=== PATIENT | female | born 1980 | race Caucasian/White ===

== ENCOUNTER 2016-11-08 21:12 | Emergency (ER) | payer SELFPAY ==
--- NOTE | 2016-11-09 04:18 | ED ORDER SUMMARY ---
..... Patient: ZECHARIAH KATZ OrderSheet [facility] VisitID: [id number] [address] [place] [address] 36y, F Registration Date/Time: 11/08/2016 ORDER SHEET Weight: 99.7 kg (stated) Allergies: No Known Drug Allergy GENERAL ORDERS: CBC w Diff Urgent (22:06 11/08/2016 HSoule per protocol) (Ack 22:10 NHouse ER Tech1) (23:16 AMcQuoid ER Tech1) UA-Culture if indicated Urgent (22:06 11/08/2016 HSoule per protocol) (Ack 22:10 NHouse ER Tech1) (23:16 AMcQuoid ER Tech1) Urine Urgent (22:11/08/2016 HSoule per protocol) (Ack 22:10 NHouse ER Tech1) (23:16 AMcQuoid ER Tech1) Salicylate Level Urgent (22:11/08/2016 HSoule per protocol) (Ack 22:10 NHouse ER Tech1) (23:16 AMcQuoid ER Tech1) Ethyl Alcohol Urgent (22:06 11/08/2016 HSoule per protocol) (Ack 22:10 NHouse ER Tech1) (23:16 AMcQuoid ER Tech1) Acetaminophen Level Urgent (22:11/08/2016 HSoule per protocol) (Ack 22:10 NHouse ER Tech1) (23:16 AMcQuoid ER Tech1) Urine Drug Screen Urgent (22:11/08/2016 HSoule per protocol) (Ack 22:10 NHouse ER Tech1) (23:16 AMcQuoid ER Tech1) TSH Urgent (22:06 11/08/2016 HSoule per protocol) (Ack 22:10 NHouse ER Tech1) (23:16 AMcQuoid ER Tech1) CMP Urgent (22:11/08/2016 HSoule per protocol) (Ack 22:10 NHouse ER Tech1) (23:16 AMcQuoid ER Tech1) MEDICATION ORDERS: Zofran ODT PO 4 mg (NOW) (01:28 11/09/2016 HSoule verbal order read back to Dwayne RIVAS) (Ack 1:30 HSoule) (1:30 HSoule) IV FLUIDS: ORDER SHEET NOTES: [Electronically signed by Spring Silver (05:16 11/09/2016)] [Electronically signed by Steven Saez DO (16:30 11/09/2016)] [Electronically locked/signed by Spring Silver (05:16 11/09/2016)]
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
--- NOTE | 2016-11-09 04:18 | ED CLINICAL REPORT ---
Clinical Report - Physicians/Mid Levels [facility] [address] [place] [address] 11/08/2016 21:13 Patient: ZECHARIAH KATZ Time Seen: 2130; upon arrival, initial patient contact, initial documentation, patient care assumed. Arrived- By private vehicle. Not in custody. Historian- patient. HISTORY OF PRESENT ILLNESS Chief Complaint: ANXIOUS, DEPRESSED and SUICIDAL THOUGHTS and AGITATED. This started just prior to arrival. The patient has experienced situational problems related to personal finances, unemployment, a recent job loss and monetary problems (lost her job in Oct, and lost her health insurance shortly after, dad was dx with bad health issues). She was not found wandering. She is non-compliant with medication. Recent marijuana use. No recent alcohol consumption. Has been depressed but eating and had suicidal thoughts. Has not been sleeping. She has had anxiety. She inflicted self-injury to the left wrist. The symptoms are described as moderate. An injury is present. cut self with razor, has done this before, same wrist. Similar symptoms previously: Seen in the ED and a clinic. Hospitalized. Evaluation/treatment: antidepressants and has seen psychiatrist. Diagnosis: bipolar disorder, depression, self injury and suicide attempt. ( has had psych issues for over 20 years). Recent medical care: Not recently seen/assessed. REVIEW OF SYSTEMS No dizziness, weakness, chest pain, abdominal pain or vomiting. No diarrhea, numbness, fever, cough or difficulty breathing. All systems otherwise negative, except as recorded above. PAST HISTORY See nurses notes. ( PROBLEMS: Bipolar Disorder. Pseudoseizure. Anxiety Reaction. Depression. Seizure / pseudoseizure Disorder. Cyclical vomiting syndrome. SURGERIES: Hysterectomy.). Medications: ClonazePAM Oral. Allergies: No Known Drug Allergy. SOCIAL HISTORY Light tobacco smoker. Occasional alcohol use. History of occasional drug use: marijuana. Has social support. Has place to stay. FAMILY HISTORY Negative. ADDITIONAL NOTES The nursing notes have been reviewed with agreement regarding the chief complaint, HPI, ROS, PMH and patient medications and allergies. PHYSICAL EXAM Vital Signs: 11/08/2016 21:31 BP: 109/75. HR: 83. RR: 20. O2 saturation: 100%. Have been reviewed as normal and appear to be correct. Appearance: Alert. No acute distress. Appearance is normal. Eyes: Pupils equal, round and reactive to light. Neck: Normal inspection. Neck supple. CVS: Normal heart rate and rhythm. Heart sounds normal. Respiratory: Breath sounds normal. Chest nontender. Abdomen: Soft and nontender. Back: No tenderness. Skin: Skin warm and dry. Normal skin color. Normal skin turgor. Extremities: Extremities exhibit normal ROM. No lower extremity edema. (3cm lac to L wrist, no active bleeding, see lac note). Psych / Neuro: Oriented X 3. Mood and affect normal. Speech normal. Cognition normal. Thought process and content normal. Insight and judgement normal. Cranial nerves normal (as tested). No cerebellar findings. No motor deficit. No sensory deficit. LABS, X-RAYS, AND EKG Laboratory Tests: UA-Culture if indicated: (RUBEN: 11/08/2016 22:25) ( [facility] 11/08/2016 22:54) Final results Test Result Flag Units (Reference) URINE COLOR YELLOW URINE APPEARANCE CLEAR URINE GLUCOSE NEGATIVE (NEGATIVE) URINE BILIRUBIN NEGATIVE (NEGATIVE) URINE KETONE NEGATIVE (NEGATIVE) URINE SPECIFIC GRAVITY 1.025 (1.010-1.030) URINE PH 5.5 (5.0-8.0) URINE PROTEIN NEGATIVE (NEGATIVE) URINE UROBILINOGEN 0.2 EU/dL (0.2-1.0) URINE NITRITE NEGATIVE (NEGATIVE) URINE BLOOD NEGATIVE (NEGATIVE) URINE LEUK ESTERASE NEGATIVE (NEGATIVE) URINE RBC 0-1 rbc/hpf (0-1) URINE WBC RARE wbc/hpf (0-1) URINE EPITHELIAL CELLS 0-1 EPI/hpf (0-5) URINE BACTERIA NONE SEEN (NONE SEEN) URINE COMMENT CULT NOT INDICATED URINE CULTURES ARE SET-UP BASED ON THE FOLLOWING CRITERIA:POSITIVE NITRITEPOSITIVE LEUKOCYTE ESTERASEGREATER THAN 10 WHITE BLOOD CELLSMODERATE (2+) OR GREATER BACTERIA Urine: (RUBEN: 11/08/2016 22:25) ( [facility] 11/08/2016 22:52) Final results Test Result Flag Units (Reference) URINE NEGATIVE CBC w Diff: (RUBEN: 11/08/2016 22:25) ( MsgRcvd 11/08/2016 22:52) Final results Test Result Flag Units (Reference) WHITE BLOOD COUNT 7.7 K/uL (4.5-11.5) RED BLOOD COUNT 4.75 M/uL (4.00-5.20) HEMOGLOBIN 14.0 gm/dL (12.0-16.0) HEMATOCRIT 42.8 % (36.0-46.0) MEAN CELL VOLUME 90 fL (80-100) MEAN CORPUSCULAR HGB 30 pg (26-34) MEAN CORPUSCULAR HGB CONC 33 g/dL (31-37) RED CELL DISTRIBUTION WIDTH 12.6 % (11.6-14.8) PLATELET COUNT 426 H K/uL (150-400) NEUTROPHIL % 61.1 % (50-75) LYMPH % 29.7 % (25-40) MONO % 4.5 % (3-14) EOSINOPHIL % 4.3 H % (0-4) BASOPHIL % 0.4 % (0-2) CMP: (RUBEN: 11/08/2016 22:25) ( MsgRcvd 11/08/2016 23:23) Final results Test Result Flag Units (Reference) GLUCOSE 92 mg/dL (70-110) BUN 18 mg/dL (7-18) CREATININE 0.8 mg/dL (0.6-1.3) Estimated GFR >60 mL/min Estimated GFR- >60 mL/min Note: Persistent reduction over 3 months in eGFR<60 mL/min/1.73 m2 defines CKD. Patients with eGFR values>=60 mL/min/1.73 m2 may also have CKD if evidence ofpersistent proteinuria. Additional information may be foundat www.kidney.org. SODIUM 143 mmol/L (136-145) POTASSIUM 4.0 mmol/L (3.5-5.1) CHLORIDE 106 mmol/L (98-107) CARBON DIOXIDE 25 mmol/L (21-32) CALCIUM 8.7 mg/dL (8.5-10.1) TOTAL PROTEIN 7.6 g/dL (6.4-8.2) ALBUMIN 4.0 g/dL (3.3-5.0) BILIRUBIN, TOTAL 0.2 mg/dL (0.0-1.0) ALKALINE PHOSPHATASE 102 U/L (46-116) AST (SGOT) 13 L U/L (15-37) ALT (SGPT) 19 U/L (12-78) Urine Drug Screen: (RUBEN: 11/08/2016 22:25) ( [facility] 11/08/2016 23:01) Final results Test Result Flag Units (Reference) AMPHETAMINE/METHAMPHETAMINE NEGATIVE (NEGATIVE) BARBITURATE NEGATIVE (NEGATIVE) BENZODIAZEPINE NEGATIVE (NEGATIVE) CANNABINOID POSITIVE H (NEGATIVE) COCAINE NEGATIVE (NEGATIVE) ECSTASY NEGATIVE (NEGATIVE) METHADONE NEGATIVE (NEGATIVE) OPIATE NEGATIVE (NEGATIVE) The urine drug screen is a qualitative screening test fordrug overdose and abuse. All screen results should beconsidered as presumptive.Drugs screened for are as follows:BenzodiazepinesCocaineAmphetamines/MetamphetaminesTHC (Tetrahydrocannabinol)OpiatesBarbituratesEcstasyMethadonePositive results are unconfirmed. For confirmation, notifythe lab for the specimen to be sent to the reference lab.All confirmations must be performed by a differentmethodology.The ingestion of natural herbal and plant productscontaining Ephedra/Ephedra metabolites can produce in urineone or more substances capable of cross reacting withamphetamine/methamphetamine immunoassays. These testsprovide a preliminary result only. A more specificalternative chemical method must be used to obtain aconfirmed analytical result. Salicylate Level: (RUBEN: 11/08/2016 22:25) ( [facility] 11/08/2016 22:44) Final results Test Result Flag Units (Reference) SALICYLATE <2.8 L mg/dL (2.8-20) Acetaminophen Level: (RUBEN: 11/08/2016 22:25) ( [facility] 11/08/2016 23:40) Final results Test Result Flag Units (Reference) ETHYL ALCOHOL 38 H mg/dL (3-10) ACETAMINOPHEN < 2.0 L ug/mL (10-30) THYROID STIMULATING HORMONE 2.336 uIU/mL (0.34-3.74) . Pulse Oximetry: 11/08/2016 21:31 O2 saturation: 100%. (FIO2 - room air). Interpretation: normal. PROGRESS AND PROCEDURES Suicide Risk Assessment: The patient's suicide risk factors are as follows: depression symptoms and prior attempts. The patient has a diagnosis of major depression. Clinical suicide risk assessment: moderate risk. Laceration Repair: Location: left wrist. Length: 3 cm. Complexity: simple (closed with tissue adhesive). Wound depth/shape- subcutaneous and linear and involving fascia. Wound is clean. No contamination, foreign body or contused tissue present. No tissue loss. Distal neuro/vascular/tendon status normal. Tendon not examined. No tendon deficit or laceration or tendon injury. Prepped with Betadine. Wound explored, cleansed, irrigated and examined to the base in bloodless field with normal saline. Closure of superficial layer: (dermabond). Skin adhesive used. Post-procedure: she is stable and there are no complications. Bleeding is controlled and neuro-vascular status is intact distal to the wound. Estimated blood loss: 1 mL. Course of Care: pt not wanting to be here or stay to speak to counselor, brought in by spouse who walked into room and saw her cutting herself, pt states she cut herself to see if it would give her release or make herself feel better, but it didn't, she doesn't want to stay, because she has been thru this several times, [facility], has list of resources, and knows what they will say, pt informed due to self harm she has to stay for counselor and they have to clear her to go home, and if she wants to go home, she needs to cooperate, because if she doesn't she will then be forced to stay even longer and warned not to try and leave because police will bring her back, pt verbalized understanding and stated she didn't want to cause any trouble 23:24 11/08/16. reported off to Dr. Saze, whom is assuming care. Differential Diagnosis: Other possible considerations: bipolar, si, self harm, wrist lac, substance abuse, depression. Above considerations are based on history and physical exam. Differential diagnosis was discussed with patient. Disposition: Condition: good and stable. CLINICAL IMPRESSION Anxiety reaction. 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 Self injurious behavior / cutting behavior. INSTRUCTIONS Stay with responsible adult family member (or other responsible adult). Drink plenty of fluids. Do not smoke. Seek medical help to quit smoking. No alcohol until released. (PLEASE FOLLOW UP RECOMMENDED BY THE MENTAL HEALTH PROFESSIONAL). Warnings: Further evaluation is necessary. It is very important to follow up with a physician. GENERAL WARNINGS: Return or contact your physician immediately if your condition worsens or changes unexpectedly, if not improving as expected, or if other problems arise. Prescription Medications: Seroquel 25 mg: Take 1 tablet orally every twelve hours. Dispense fifteen (15). No refills. Substitution is permissible. Follow-up: Follow up with your doctor tomorrow. (Electronically signed by Steven Saez DO 11/09/2016 16:30)
--- NOTE | 2016-11-09 04:18 | ED ORDER SUMMARY ---
..... Patient: ZECHARIAH KATZ OrderSheet [facility] VisitID: [id number] [address] [place] [address] 36y, F Registration Date/Time: 11/08/2016 ORDER SHEET Weight: 99.7 kg (stated) Allergies: No Known Drug Allergy GENERAL ORDERS: CBC w Diff Urgent (22:06 11/08/2016 HSoule per protocol) (Ack 22:10 NHouse ER Tech1) (23:16 AMcQuoid ER Tech1) UA-Culture if indicated Urgent (22:06 11/08/2016 HSoule per protocol) (Ack 22:10 NHouse ER Tech1) (23:16 AMcQuoid ER Tech1) Urine Urgent (22:11/08/2016 HSoule per protocol) (Ack 22:10 NHouse ER Tech1) (23:16 AMcQuoid ER Tech1) Salicylate Level Urgent (22:11/08/2016 HSoule per protocol) (Ack 22:10 NHouse ER Tech1) (23:16 AMcQuoid ER Tech1) Ethyl Alcohol Urgent (22:06 11/08/2016 HSoule per protocol) (Ack 22:10 NHouse ER Tech1) (23:16 AMcQuoid ER Tech1) Acetaminophen Level Urgent (22:11/08/2016 HSoule per protocol) (Ack 22:10 NHouse ER Tech1) (23:16 AMcQuoid ER Tech1) Urine Drug Screen Urgent (22:11/08/2016 HSoule per protocol) (Ack 22:10 NHouse ER Tech1) (23:16 AMcQuoid ER Tech1) TSH Urgent (22:06 11/08/2016 HSoule per protocol) (Ack 22:10 NHouse ER Tech1) (23:16 AMcQuoid ER Tech1) CMP Urgent (22:11/08/2016 HSoule per protocol) (Ack 22:10 NHouse ER Tech1) (23:16 AMcQuoid ER Tech1) MEDICATION ORDERS: Zofran ODT PO 4 mg (NOW) (01:28 11/09/2016 HSoule verbal order read back to Dwayne RIVAS) (Ack 1:30 HSoule) (1:30 HSoule) IV FLUIDS: ORDER SHEET NOTES: [Electronically signed by Spring Silver (05:16 11/09/2016)] [Electronically signed by Steven Saez DO (16:30 11/09/2016)] [Electronically locked/signed by Spring Silver (05:16 11/09/2016)]
--- NOTE | 2016-11-09 16:30 | ED DISCHARGE INSTRUCTIONS ---
Patient: ZECHARIAH KATZ General Instructions [facility] VisitID: [id number] [address] [place] [address] 36y, F Registration Date/Time: 11/08/2016 Anxiety reaction. 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 Self injurious behavior / cutting behavior. INSTRUCTIONS Stay with responsible adult family member (or other responsible adult). Drink plenty of fluids. Do not smoke. Seek medical help to quit smoking. No alcohol until released. (PLEASE FOLLOW UP RECOMMENDED BY THE MENTAL HEALTH PROFESSIONAL). Warnings: Further evaluation is necessary. It is very important to follow up with a physician. GENERAL WARNINGS: Return or contact your physician immediately if your condition worsens or changes unexpectedly, if not improving as expected, or if other problems arise. Prescription Medications: Seroquel 25 mg: Take 1 tablet orally every twelve hours. Dispense fifteen (15). No refills. Substitution is permissible. Follow-up: Follow up with your doctor tomorrow. ADDITIONAL INFORMATION Marijuana Abuse Marijuana is the most widely used illegal drug in the [place]. It is called by various names such as pot, weed, blunts, grass, reefer, ganja, hash, hashish. It is usually smoked but can be mixed with foods or brewed as a tea. It is sometimes sold with PCP (Lazaro Dust) or amphetamine mixed in it. These drugs can cause other harmful side effects. Marijuana can cause the following effects: Changes in mood (stimulated, happy, drowsy, depressed, paranoid) Hallucinations Increased heart rate and blood pressure Increased appetite Time distortion, difficulty concentrating, impaired memory Lung damage (similar to cigarettes with chronic cough, wheezing, frequent colds and bronchitis) You can become psychologically dependent on marijuana. That means the craving to use the drug is emotional or psychological rather than due to physical withdrawal. Is Marijuana Running Your Life? Here are some of the signs: Relying on marijuana to feel good, forget problems, deal with stress or to relax Wanting to be alone most of the time or only with others who use drugs Losing interest in things that used to be important Changes in school or job performance or attendance Spending a lot of time thinking about how to get marijuana Stealing or selling your things so you can buy marijuana Unable to stop using even though you may want to quit Increasing anxiety, anger,or depression Sleeping too much, changes in eating habits (weight loss or gain) Needing to use more to get the same effect Home Care Once you have become addicted to any drug, quitting is hard to do. Most people find they can't quit without help. So, dont try to do this alone. Talk to someone you trust who can support you. Seek professional help. Avoid people and places where drugs are used. That only increases the temptation to use. Follow Up with your doctor or as advised by our staff. For more information or a referral to a treatment center in your area, contact: Your local mental health center or the National Alcohol and Substance Abuse Information Center (214)-726-7189 www.addictioncareCommonKey.[employer] National [place] on Alcoholism and Drug Dependence 747-059-COTT www.ncadd.org Marijuana Anonymous 225-227-4410 www.marijuana-anonymous.org Get Prompt Medical Attention if any of the following occur: You feel extreme depression, fear, anxiety, or anger toward yourself or others You feel out of control You feel that you may try to harm yourself or another How To Quit Smoking Smoking is one of the hardest habits to break. About half of all those who have ever smoked have been able to quit, and most of those (about 70%) who still smoke want to quit. Here are some of the best ways to stop smoking. Keep Trying: It takes most smokers about 8 tries before they are finally able to fully quit. So, the more often you try and fail, the better your chance of quitting the next time! So, don't give up! Go Cold [place]: Most ex-smokers quit cold turkey. Trying to cut back gradually doesn't seem to work as well, perhaps because it continues the smoking habit. Also, it is possible to fool yourself by inhaling more while smoking fewer cigarettes. This results in the same amount of nicotine in your body! Get Support: Support programs can make an important difference, especially for the heavy smoker. These groups offer lectures, methods to change your behavior and peer support. Call the free national Quitline for more information. 291-VLOT-BOC (402-252-4833). Low-cost or free programs are offered by many hospitals, local chapters of the [place] [employer] (362-489-9503) and the [place] [employer] (680-190-9616). Support at home is important too. Non-smokers can help by offering praise and encouragement. If the smoker fails to quit, encourage them to try again! Ceyy-Uag-Jpxhuvn Medicines: For those who can't quit on their own, Nicotine Replacement Therapy (NRT) may make quitting much easier. Certain aids such as the nicotine patch, gum and lozenge are available without a prescription. However, it is best to use these under the guidance of your doctor. The skin patch provides a steady supply of nicotine to the body. Nicotine gum and lozenge gives temporary bursts of low levels of nicotine. Both methods take the edge off the craving for cigarettes. WARNING: If you feel symptoms of nicotine overdose, such as nausea, vomiting, dizziness, weakness, or fast heartbeat, stop using these and see your doctor. Prescription Medicines: After evaluating your smoking patterns and prior attempts at quitting, your doctor may offer a prescription medicine such as bupropion (Zyban, Wellbutrin), varenicline (Chantix, Champix), a niocotine inhaler or nasal spray. Each has its unique advantage and side effects which your doctor can review with you. Health Benefits Of Quitting: The benefits of quitting start right away and keep improving the longer you go without smokin minutes: blood pressure and pulse return to normal 8 hours: oxygen levels return to normal 2 days: ability to smell and taste begins to improve as damaged nerves start to regrow 2-3 weeks: circulation and lung function improves 1-9 months: decreased cough, congestion and shortness of breath; less tired 1 year: risk of heart attack decreases by half 5 years: risk of lung cancer decreases by half; risk of stroke becomes the same as a non-smoker For information about how to quit smoking, visit the following links: National Cancer [place] , Clearing the Air, Quit Smoking Today - an online booklet. http://www.smokefree.gov/pubs/clearing_the_air.pdf Smokefree.gov http://smokefree.gov/ QuitNet http://www.quitnet.com/ You have been given the following additional information: Marijuana Abuse Smoking Cessation Stay with responsible adult family member (or other responsible adult). (Electronically signed by Steven Saez DO 11/09/2016 16:30)
--- NOTE | 2016-11-09 16:30 | ED MAR SUMMARY ---
..... Medication Administration Record [facility] [address] [place] [address] Patient: ZECHARIAH KATZ Visit ID: [id number] 36y, F Weight: 99.7 kg Height/Length: 67 in BMI: 34.5 ALLERGIES: No Known Drug Allergy Given 01:30 11/09/2016 [place], Medication Administered: ZOFRAN ODT [PO] (ONDANSETRON), Dose: 4 mg Oral Disintegrating Tablets PO. Medication Ordered: Zofran ODT PO 4 mg (NOW).
--- NOTE | 2016-11-09 16:30 | ED MAR SUMMARY ---
..... Medication Administration Record [place] [address] [place] [address] Patient: ZECHARIAH KATZ Visit ID: [id number] 36y, F Weight: 99.7 kg Height/Length: 67 in BMI: 34.5 ALLERGIES: No Known Drug Allergy Given 01:30 11/09/2016 [place], Medication Administered: ZOFRAN ODT [PO] (ONDANSETRON), Dose: 4 mg Oral Disintegrating Tablets PO. Medication Ordered: Zofran ODT PO 4 mg (NOW).
--- NOTE | 2016-11-09 16:30 | ED DISCHARGE INSTRUCTIONS ---
Patient: ZECHARIAH KATZ General Instructions [facility] VisitID: [id number] [address] [place] [address] 36y, F Registration Date/Time: 11/08/2016 Anxiety reaction. 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 Self injurious behavior / cutting behavior. INSTRUCTIONS Stay with responsible adult family member (or other responsible adult). Drink plenty of fluids. Do not smoke. Seek medical help to quit smoking. No alcohol until released. (PLEASE FOLLOW UP RECOMMENDED BY THE MENTAL HEALTH PROFESSIONAL). Warnings: Further evaluation is necessary. It is very important to follow up with a physician. GENERAL WARNINGS: Return or contact your physician immediately if your condition worsens or changes unexpectedly, if not improving as expected, or if other problems arise. Prescription Medications: Seroquel 25 mg: Take 1 tablet orally every twelve hours. Dispense fifteen (15). No refills. Substitution is permissible. Follow-up: Follow up with your doctor tomorrow. ADDITIONAL INFORMATION Marijuana Abuse Marijuana is the most widely used illegal drug in the [place]. It is called by various names such as pot, weed, blunts, grass, reefer, ganja, hash, hashish. It is usually smoked but can be mixed with foods or brewed as a tea. It is sometimes sold with PCP (Lazaro Dust) or amphetamine mixed in it. These drugs can cause other harmful side effects. Marijuana can cause the following effects: Changes in mood (stimulated, happy, drowsy, depressed, paranoid) Hallucinations Increased heart rate and blood pressure Increased appetite Time distortion, difficulty concentrating, impaired memory Lung damage (similar to cigarettes with chronic cough, wheezing, frequent colds and bronchitis) You can become psychologically dependent on marijuana. That means the craving to use the drug is emotional or psychological rather than due to physical withdrawal. Is Marijuana Running Your Life? Here are some of the signs: Relying on marijuana to feel good, forget problems, deal with stress or to relax Wanting to be alone most of the time or only with others who use drugs Losing interest in things that used to be important Changes in school or job performance or attendance Spending a lot of time thinking about how to get marijuana Stealing or selling your things so you can buy marijuana Unable to stop using even though you may want to quit Increasing anxiety, anger,or depression Sleeping too much, changes in eating habits (weight loss or gain) Needing to use more to get the same effect Home Care Once you have become addicted to any drug, quitting is hard to do. Most people find they can't quit without help. So, dont try to do this alone. Talk to someone you trust who can support you. Seek professional help. Avoid people and places where drugs are used. That only increases the temptation to use. Follow Up with your doctor or as advised by our staff. For more information or a referral to a treatment center in your area, contact: Your local mental health center or the National Alcohol and Substance Abuse Information Center (905)-409-6473 www.addictioncareOverlay Studio.Netnui.com National [place] on Alcoholism and Drug Dependence 021-906-MPJQ www.ncadd.org Marijuana Anonymous 073-446-7862 www.marijuana-anonymous.org Get Prompt Medical Attention if any of the following occur: You feel extreme depression, fear, anxiety, or anger toward yourself or others You feel out of control You feel that you may try to harm yourself or another How To Quit Smoking Smoking is one of the hardest habits to break. About half of all those who have ever smoked have been able to quit, and most of those (about 70%) who still smoke want to quit. Here are some of the best ways to stop smoking. Keep Trying: It takes most smokers about 8 tries before they are finally able to fully quit. So, the more often you try and fail, the better your chance of quitting the next time! So, don't give up! Go Cold [place]: Most ex-smokers quit cold turkey. Trying to cut back gradually doesn't seem to work as well, perhaps because it continues the smoking habit. Also, it is possible to fool yourself by inhaling more while smoking fewer cigarettes. This results in the same amount of nicotine in your body! Get Support: Support programs can make an important difference, especially for the heavy smoker. These groups offer lectures, methods to change your behavior and peer support. Call the free national Quitline for more information. 766-KRER-JOP (226-136-6054). Low-cost or free programs are offered by many hospitals, local chapters of the [place] [employer] (803-956-8307) and the [place] [employer] (426-529-8885). Support at home is important too. Non-smokers can help by offering praise and encouragement. If the smoker fails to quit, encourage them to try again! Ylwc-Esc-Tzwlujf Medicines: For those who can't quit on their own, Nicotine Replacement Therapy (NRT) may make quitting much easier. Certain aids such as the nicotine patch, gum and lozenge are available without a prescription. However, it is best to use these under the guidance of your doctor. The skin patch provides a steady supply of nicotine to the body. Nicotine gum and lozenge gives temporary bursts of low levels of nicotine. Both methods take the edge off the craving for cigarettes. WARNING: If you feel symptoms of nicotine overdose, such as nausea, vomiting, dizziness, weakness, or fast heartbeat, stop using these and see your doctor. Prescription Medicines: After evaluating your smoking patterns and prior attempts at quitting, your doctor may offer a prescription medicine such as bupropion (Zyban, Wellbutrin), varenicline (Chantix, Champix), a niocotine inhaler or nasal spray. Each has its unique advantage and side effects which your doctor can review with you. Health Benefits Of Quitting: The benefits of quitting start right away and keep improving the longer you go without smokin minutes: blood pressure and pulse return to normal 8 hours: oxygen levels return to normal 2 days: ability to smell and taste begins to improve as damaged nerves start to regrow 2-3 weeks: circulation and lung function improves 1-9 months: decreased cough, congestion and shortness of breath; less tired 1 year: risk of heart attack decreases by half 5 years: risk of lung cancer decreases by half; risk of stroke becomes the same as a non-smoker For information about how to quit smoking, visit the following links: National Cancer [place] , Clearing the Air, Quit Smoking Today - an online booklet. http://www.smokefree.gov/pubs/clearing_the_air.pdf Smokefree.gov http://smokefree.gov/ QuitNet http://www.quitnet.com/ You have been given the following additional information: Marijuana Abuse Smoking Cessation Stay with responsible adult family member (or other responsible adult). (Electronically signed by Steven Saez DO 11/09/2016 16:30)
--- NOTE | 2016-11-09 16:31 | ED MED RECONCILIATION SUMMARY ---
Patient: ZECHARIAH KATZ Medication Reconciliation Report [facility] VisitID: [id number] [address] [place] [address] 36y, F Registration Date/Time: 11/08/2016 Weight: 99.7 kg Height/Length: 67 in. BMI: 34.5 ALLERGIES: No Known Drug Allergy The patient's Home Medications are listed below: THE FOLLOWING MEDICATIONS NEED TO BE RECONCILED: ClonazePAM Oral The source(s) of the original Home Medication information: patient The following Medications were given to the patient in the Emergency Department: Zofran ODT [PO] PO 4 mg, administered: 11/09/2016 1:30:00 AM The following Medications were prescribed to the patient: Seroquel 25 mg: Take 1 tablet orally every twelve hours. Dispense fifteen (15). No refills. Substitution is permissible. -- Steven Saez,
--- NOTE | 2016-11-09 16:31 | ED MED RECONCILIATION SUMMARY ---
Patient: ZECHARIAH KATZ Medication Reconciliation Report [facility] VisitID: [id number] [address] [place] [address] 36y, F Registration Date/Time: 11/08/2016 Weight: 99.7 kg Height/Length: 67 in. BMI: 34.5 ALLERGIES: No Known Drug Allergy The patient's Home Medications are listed below: THE FOLLOWING MEDICATIONS NEED TO BE RECONCILED: ClonazePAM Oral The source(s) of the original Home Medication information: patient The following Medications were given to the patient in the Emergency Department: Zofran ODT [PO] PO 4 mg, administered: 11/09/2016 1:30:00 AM The following Medications were prescribed to the patient: Seroquel 25 mg: Take 1 tablet orally every twelve hours. Dispense fifteen (15). No refills. Substitution is permissible. -- Steven Saez,
== END 2016-11-09 04:45 | disposition home or self-care (01) ==
LOC: ED SRH 21:12
DX: F41.1 Generalized anxiety disorder (principal); F33.9 Major depressive disorder, recurrent, unspecified; R45.851 Suicidal ideations; F17.210 Nicotine dependence, cigarettes, uncomplicated; F12.188 Cannabis abuse with other cannabis-induced disorder; S61.512A Laceration without foreign body of left wrist, initial encounter; X78.8XXA Intentional self-harm by other sharp object, initial encounter; Y92.9 Unspecified place or not applicable
CPT/HCPCS: 82708; 90004; 90074; 90100; 92010; 92760; 92761; 92762; 92763; 92764; 92765; 92766; 92767; 92780; 93070; 93140; 95059; 97000